=== PATIENT | female | born 1970 ===

== ENCOUNTER 2019-09-09 05:19 | Day surgery (SDC) | payer OTHER ==
[~2019-09-09 05:19] MED LIST: ZESTRIL20 MG PO
== END 2019-09-09 12:00 | disposition home or self-care (01) ==
LOC: CIR.AMB 05:19 → ADM 08:15 → CIR.AMB 08:15
PROVIDERS: ATTEND Orthopaedic Surgery Hand Surgery
DX: G56.01 Carpal tunnel syndrome, right upper limb (principal)